=== PATIENT | male | born 1975 | race Caucasian/White ===

== ENCOUNTER → 2020-10-05 13:17 | Outpatient (CLI) | payer MEDICARE, MEDICAID ==
[2014-04-04 00:23] VITALS: BMI 20.7
[~2020-10-05 13:17] MED LIST: CYMBALTA60 MG PO; DEPAKOTE ER500 MG PO; LISINOPRIL; LOPRESSOR25 MG PO; PEPCID40 MG PO; TEGRETOL 200 M200 MG PO
[2020-10-05 13:30] LABS: BASOPHILS 0.2 % (0-2); EOSINOPHILS 1.3 % (0-7); HEMOGLOBIN 13.5 g/dL (13.5-17.5); IMMATURE GRANULOCYTES 0.2 % (0-5); LYMPHOCYTE ABS# 1.58 10x3/uL (1.32-3.57); LYMPHOCYTES 28.3 % (15-50); MCH 28.8 pg (26.0-34.0); MCHC 32.9 g/dL (31.0-37.0); MCV 87.6 fL (80.0-100.0); MEAN PLATELET VOLUME 10.8 fL (7.4-10.4); NEUTROPHIL ABS# 3.52 10x3/uL (1.78-5.38); PLATELET COUNT 135 10x3/uL (130-400); RBC 4.68 10x6/uL (4.20-6.10); WBC 5.6 10x3/uL (4.8-10.8)
[2020-10-05 14:25] LABS: ALKALINE PHOSPHATASE 136 U/L (30-120); ALT (SGPT) 53 U/L (10-68); BILIRUBIN - TOTAL 0.63 mg/dL (0.2-1.3); CALC OSMOLALITY 281 mosm/kg (275-300); CALCIUM 8.5 mg/dL (8.5-10.1); CARBON DIOXIDE 32.1 mmol/L (21.0-32.0); CHLORIDE - SERUM 100 mmol/L (98-107); CHOL - HDL RATIO 3.5 ratio (2.3-4.9); CHOLESTEROL, TOTAL 152 mg/dL (0-200); CREATININE - SERUM 1.1 mg/dL (0.6-1.3); GLUCOSE 94 mg/dL (74-106); HDL CHOLESTEROL 43 mg/dL (32-96); LDL CHOLESTEROL 83 mg/dL (0-100); LDL-HDL RATIO 1.9 ratio (1.5-3.5); POTASSIUM - SERUM 3.5 mmol/L (3.5-5.1); SODIUM 141 mmol/L (136-145); TRIGLYCERIDE 133 mg/dL (30-200); UREA NITROGEN 15 mg/dL (7-18); eGFR NON AFRICAN AMERICAN 78 mL/min (90-120)
== END | disposition home or self-care (01) ==
LOC: D.LABREF 13:17
PROVIDERS: ATTEND Family Medicine
DX: N17.9 Acute kidney failure, unspecified (principal); I10 Essential (primary) hypertension; E87.6 Hypokalemia

== ENCOUNTER 2020-12-08 16:50 | Emergency (ER) | payer OTHER ==
[~2020-12-08] VITALS: Ht 175.3 cm; Wt 68.2 kg
[2020-12-08 17:14] VITALS: Ht 175.3 cm; Wt 68.2 kg
[2020-12-08 17:55] LABS: BASOPHILS 0.1 % (0-2); EOSINOPHILS 0.4 % (0-7); HEMATOCRIT 40.9 % (42.0-54.0); HEMOGLOBIN 13.7 g/dL (13.5-17.5); IMMATURE GRANULOCYTES 0.5 % (0-5); LYMPHOCYTE ABS# 0.94 10x3/uL (1.32-3.57); LYMPHOCYTES 11.7 % (15-50); MCH 27.3 pg (26.0-34.0); MCHC 33.5 g/dL (31.0-37.0); MCV 81.6 fL (80.0-100.0); MEAN PLATELET VOLUME 11.1 fL (7.4-10.4); MONOCYTES 4.2 % (2-11); NEUTROPHIL ABS# 6.68 10x3/uL (1.78-5.38); NEUTROPHILS 83.1 % (40-80); PLATELET COUNT 134 10x3/uL (130-400); RBC 5.01 10x6/uL (4.20-6.10); RDW 12.8 % (11.5-14.5)
[2020-12-08 18:11] LABS: ALKALINE PHOSPHATASE 86 U/L (30-120); ALT (SGPT) 23 U/L (10-68); BILIRUBIN - TOTAL 0.43 mg/dL (0.2-1.3); CALCIUM 8.9 mg/dL (8.5-10.1); CARBON DIOXIDE 27.8 mmol/L (21.0-32.0); CHLORIDE - SERUM 102 mmol/L (98-107); CREATININE - SERUM 1.1 mg/dL (0.6-1.3); PROTEIN - SERUM 7.1 g/dL (6.4-8.2); SODIUM 142 mmol/L (136-145); UREA NITROGEN 10 mg/dL (7-18); eGFR NON AFRICAN AMERICAN 78 mL/min (90-120)
[2020-12-08 18:12] LABS: BILIRUBIN NEGATIVE (NEGATIVE); KETONE SMALL mg/dL (NEGATIVE); NITRITE NEGATIVE (NEGATIVE); UROBILINOGEN NORMAL mg/dL (< 2)
[2020-12-08 18:22] LABS: CALC OSMOLALITY 284 mosm/kg (275-300); GLUCOSE 158 mg/dL (74-106)
[2020-12-08 18:26] LABS: MAGNESIUM - SERUM 0.9 mg/dL (1.8-2.4); POTASSIUM - SERUM 2.9 mmol/L (3.5-5.1)
[2020-12-08 18:31] LABS: UDS - AMPHET NEGATIVE QUAL (NEGATIVE); UDS - BARB NEGATIVE QUAL (NEGATIVE); UDS - BENZO POSITIVE QUAL (NEGATIVE); UDS - COCAINE NEGATIVE QUAL (NEGATIVE); UDS - OPIATE NEGATIVE QUAL (NEGATIVE); UDS - PCP NEGATIVE QUAL (NEGATIVE); UDS - THC NEGATIVE QUAL (NEGATIVE)
[2020-12-08 22:26] LABS: POTASSIUM - SERUM 3.1 mmol/L (3.5-5.1)
[2020-12-08 22:27] LABS: MAGNESIUM - SERUM 1.7 mg/dL (1.8-2.4)
[2020-12-08 23:28] VITALS: BP 134/91
== END 2020-12-08 23:22 ==
LOC: D.ER 16:50
PROVIDERS: Family Medicine
DX: E87.6 Hypokalemia (principal); E83.42 Hypomagnesemia; I10 Essential (primary) hypertension; R45.6 Violent behavior

== ENCOUNTER → 2020-12-24 16:56 | Outpatient (CLI) | payer OTHER ==
[2020-12-08 17:14] VITALS: BMI 22.2
== END | disposition home or self-care (01) ==
LOC: D.LABREF 16:56
PROVIDERS: ATTEND Family Medicine
DX: F44.5 Conversion disorder with seizures or convulsions (principal); F31.9 Bipolar disorder, unspecified

== ENCOUNTER → 2020-12-30 17:43 | Outpatient (CLI) | payer OTHER ==
[2020-12-08 17:14] VITALS: BMI 22.2
[2020-12-30 18:19] LABS: BASOPHILS 0.2 % (0-2); EOSINOPHILS 0.4 % (0-7); HEMATOCRIT 44.2 % (42.0-54.0); HEMOGLOBIN 13.8 g/dL (13.5-17.5); LYMPHOCYTES 16.1 % (15-50); MCH 25.7 pg (26.0-34.0); MCHC 31.2 g/dL (31.0-37.0); MCV 82.2 fL (80.0-100.0); MEAN PLATELET VOLUME 9.1 fL (7.4-10.4); MONOCYTES 3.7 % (2-11); NEUTROPHILS 79.6 % (40-80); RBC 5.39 10x6/uL (4.20-6.10); RDW 14.1 % (11.5-14.5); WBC 13.4 10x3/uL (4.8-10.8)
[2020-12-30 18:21] LABS: PLATELET COUNT 208 10x3/uL (130-400)
== END | disposition home or self-care (01) ==
LOC: D.LABREF 17:43
PROVIDERS: ATTEND Family Medicine
DX: R68.89 Other general symptoms and signs (principal)

== ENCOUNTER → 2021-01-02 14:49 | Outpatient (CLI) | payer OTHER ==
[2020-12-08 17:14] VITALS: BMI 22.2
[2021-01-02 16:19] LABS: BILIRUBIN NEGATIVE (NEGATIVE); KETONE NEGATIVE (NEGATIVE); NITRITE NEGATIVE (NEGATIVE); UROBILINOGEN NORMAL mg/dL (< 2)
== END | disposition home or self-care (01) ==
LOC: D.LABREF 14:49
PROVIDERS: ATTEND Family Medicine
DX: F98.9 Unspecified behavioral and emotional disorders with onset usually occurring in childhood and adolescence (principal); D72.829 Elevated white blood cell count, unspecified

== ENCOUNTER → 2021-01-05 14:53 | Outpatient (CLI) | payer OTHER ==
[2020-12-08 17:14] VITALS: BMI 22.2
[2021-01-05 15:04] LABS: BASOPHILS 0.4 % (0-2); EOSINOPHILS 0.3 % (0-7); HEMATOCRIT 38.2 % (42.0-54.0); HEMOGLOBIN 12.6 g/dL (13.5-17.5); LYMPHOCYTES 14.6 % (15-50); MCH 26.4 pg (26.0-34.0); MCHC 32.9 g/dL (31.0-37.0); MCV 80.3 fL (80.0-100.0); MEAN PLATELET VOLUME 9.5 fL (7.4-10.4); MONOCYTES 5.2 % (2-11); NEUTROPHILS 79.5 % (40-80); RBC 4.76 10x6/uL (4.20-6.10); RDW 13.9 % (11.5-14.5); WBC 8.1 10x3/uL (4.8-10.8)
[2021-01-05 15:05] LABS: PLATELET COUNT 137 10x3/uL (130-400)
== END | disposition home or self-care (01) ==
LOC: D.LABREF 14:53
PROVIDERS: ATTEND Family Medicine
DX: D72.829 Elevated white blood cell count, unspecified (principal)

== ENCOUNTER 2021-01-14 14:39 | Emergency (ER) | payer OTHER ==
[~2021-01-14] VITALS: Ht 175.3 cm; Wt 65.8 kg
[2021-01-14 14:52] VITALS: BP 142/99; Ht 175.3 cm; Wt 65.8 kg
[2021-01-14 16:17] LABS: BASOPHILS 0.5 % (0-2); EOSINOPHILS 2.2 % (0-7); HEMATOCRIT 40.5 % (42.0-54.0); HEMOGLOBIN 13.6 g/dL (13.5-17.5); LYMPHOCYTES 23.3 % (15-50); MCH 26.9 pg (26.0-34.0); MCHC 33.6 g/dL (31.0-37.0); MCV 80.1 fL (80.0-100.0); MEAN PLATELET VOLUME 9.2 fL (7.4-10.4); MONOCYTES 7.4 % (2-11); NEUTROPHILS 66.6 % (40-80); PLATELET COUNT 118 10x3/uL (130-400); RBC 5.06 10x6/uL (4.20-6.10); RDW 14.9 % (11.5-14.5); WBC 6.8 10x3/uL (4.8-10.8)
[2021-01-14 16:22] LABS: CALC OSMOLALITY 281 mosm/kg (275-300); CALCIUM 8.4 mg/dL (8.5-10.1); CARBON DIOXIDE 29.3 mmol/L (21.0-32.0); CHLORIDE - SERUM 100 mmol/L (98-107); CREATININE - SERUM 1.1 mg/dL (0.6-1.3); GLUCOSE 153 mg/dL (74-106); POTASSIUM - SERUM 3.8 mmol/L (3.5-5.1); SODIUM 139 mmol/L (136-145); UREA NITROGEN 16 mg/dL (7-18); eGFR NON AFRICAN AMERICAN 78 mL/min (90-120)
[2021-01-14 16:28] LABS: ALBUMIN 3.7 g/dL (3.4-5.0); ALKALINE PHOSPHATASE 105 U/L (30-120); ALT (SGPT) 22 U/L (10-68); BILIRUBIN - TOTAL 0.41 mg/dL (0.2-1.3); PROTEIN - SERUM 7.4 g/dL (6.4-8.2)
[2021-01-14 18:05] LABS: UDS - AMPHET NEGATIVE QUAL (NEGATIVE); UDS - BARB NEGATIVE QUAL (NEGATIVE); UDS - BENZO NEGATIVE QUAL (NEGATIVE); UDS - COCAINE NEGATIVE QUAL (NEGATIVE); UDS - OPIATE NEGATIVE QUAL (NEGATIVE); UDS - PCP NEGATIVE QUAL (NEGATIVE); UDS - THC NEGATIVE QUAL (NEGATIVE)
[2021-01-14 18:07] LABS: BACTERIA FEW HPF (<MOD); BILIRUBIN NEGATIVE (NEGATIVE); KETONE NEGATIVE mg/dL (< 1+); NITRITE NEGATIVE (NEGATIVE); UROBILINOGEN NORMAL mg/dL (< 2); WHITE CELLS - URINE <1 HPF (0-1)
[2021-01-14] MEDS ORDERED: VITAMIN D325 MC1 PO (18:44)
[2021-01-14] MEDS ORDERED: PROTONIX20 MG PO (18:45)
[2021-01-14] MEDS ORDERED: ATIVAN0.5 MG PO (18:46)
[2021-01-14] MEDS ORDERED: ZOFRAN4 MG PO (18:46)
[2021-01-14] MEDS ORDERED: GEODON40 MG PO (18:47)
[2021-01-14] MEDS ORDERED: DEPAKENE 2250 MG/5 M PO (18:48)
[2021-01-14] MEDS ORDERED: DULCOLAX STOOL100 MG PO (18:50)
== END 2021-01-14 20:26 | disposition home or self-care (01) ==
LOC: D.ER 14:39
PROVIDERS: Family Medicine
DX: K59.00 Constipation, unspecified (principal); F91.8 Other conduct disorders; I10 Essential (primary) hypertension